=== PATIENT | male | born 1970 | race Caucasian/White ===

== ENCOUNTER 2016-04-15 19:16 | Emergency (ER) | payer BC ==
[2016-04-15] MEDS ORDERED: IPRATROPIUM/ALBUTEROL 0.5-2.5 MG/3 ML AMPUL NEB ONE (19:37)
--- NOTE | 2016-04-15 19:37 | ER Document Report ---
ED Medical Screen (RME) - General Stated Complaint: DIFFICLUTY BREATHING Notes: 45 yo male difficulty breathing x 3 days. + hx/ asthma. taking meds without relief. last neb @ 1600 today. no fever. + cough, nonproductive. Takes prednisone every day. TRAVEL OUTSIDE OF THE [place] IN LAST 30 DAYS: No - Related Data Allergies/Adverse Reactions: amoxicillin trihydrate [From Augmentin] Allergy (Verified 01/29/16 20:06) Potassium Clavulanate * [From Augmentin] Allergy (Verified 01/29/16 20:06) Past Medical History - Past Medical History Cardiac Medical History: Denies: Hx Coronary Artery Disease, Hx Heart Attack, Hx Hypertension Pulmonary Medical History: Denies: Hx Asthma, Hx Bronchitis, Hx COPD, Hx Pneumonia Neurological Medical History: Denies: Hx Cerebrovascular Accident, Hx Seizures Musculoskeltal Medical History: Denies Hx Arthritis Psychiatric Medical History: Reports: Hx Depression Past Surgical History: Reports: Hx Abdominal Surgery - lap band, Hx Myringotomy - Immunizations Immunizations up to date: Yes Hx Diphtheria, Pertussis, Tetanus Vaccination: Yes
[2016-04-15] MEDS ORDERED: METHYLPREDNISOLONE INJ 125 MG/2 ML SDV IM ONE (20:56)
[2016-04-15] MEDS ORDERED: ALBUTEROL SULFATE 0.083% NEB 2.5 MG/3 ML AMPUL NEB ONE (20:56)
--- NOTE | 2016-04-15 20:57 | ER Document Report ---
ED Respiratory Problem - General Chief Complaint: Asthma Exacerbation Stated Complaint: DIFFICLUTY BREATHING Mode of Arrival: Ambulatory Information source: Patient Notes: Patient is a 45-year-old male who presents to the ER today for shortness of breath with wheezing 2 days. Patient admits to cough as well but states that it is not productive and denies fever or chills, chest pain. TRAVEL OUTSIDE OF THE [place] IN LAST 30 DAYS: No - Related Data Allergies/Adverse Reactions: amoxicillin trihydrate [From Augmentin] Allergy (Verified 01/29/16 20:06) Potassium Clavulanate * [From Augmentin] Allergy (Verified 01/29/16 20:06) Past Medical History - General Information source: Patient - Social History Smoking Status: Unknown if Ever Smoked Family History: Reviewed & Not Pertinent Patient has suicidal ideation: No Patient has homicidal ideation: No - Past Medical History Cardiac Medical History: Denies: Hx Coronary Artery Disease, Hx Heart Attack, Hx Hypertension Pulmonary Medical History: Denies: Hx Asthma, Hx Bronchitis, Hx COPD, Hx Pneumonia Neurological Medical History: Denies: Hx Cerebrovascular Accident, Hx Seizures Renal/ Medical History: Denies: Hx Peritoneal Dialysis Musculoskeltal Medical History: Denies Hx Arthritis Psychiatric Medical History: Reports: Hx Depression Past Surgical History: Reports: Hx Abdominal Surgery - lap band, Hx Myringotomy - Immunizations Immunizations up to date: Yes Hx Diphtheria, Pertussis, Tetanus Vaccination: Yes Review of Systems - Review of Systems Constitutional: No symptoms reported EENT: No symptoms reported Cardiovascular: No symptoms reported Respiratory: See HPI Gastrointestinal: No symptoms reported Genitourinary: No symptoms reported Male Genitourinary: No symptoms reported Musculoskeletal: No symptoms reported Skin: No symptoms reported Hematologic/Lymphatic: No symptoms reported Neurological/Psychological: No symptoms reported Physical Exam - Vital signs Vitals: Temp Pulse Resp BP Pulse Ox 97.5 F 84 22 H 153/83 H 95 04/15/16 20:49 04/15/16 20:49 04/15/16 20:49 04/15/16 20:49 04/15/16 20:49 - Notes Notes: PHYSICAL EXAMINATION: GENERAL: Well-appearing and in no acute distress. HEAD: Atraumatic, normocephalic. EYES: Pupils equal round and reactive to light, extraocular movements intact, sclera anicteric, conjunctiva are normal. ENT: ear canals without erythema or foreign body, TMs pearly vivas with good bony landmarks, nares patent, oropharynx clear without exudates. Moist mucous membranes. Airway patent NECK: Normal range of motion, supple without lymphadenopathy LUNGS: Nonlabored breathing, slight cough, Mild expiratory wheezes in lower lung jacobs bilaterally, no rales or rhonchi. HEART: Regular rate and rhythm without murmurs ABDOMEN: Soft, no tenderness. No guarding, no rebound BACK: no vertebral tenderness, normal ROM GI/: no CVA tenderness EXTREMITIES: Normal range of motion, no pitting edema. No cyanosis. NEUROLOGICAL: Cranial nerves grossly intact. Normal sensory/motor exams. PSYCH: Normal mood, normal affect. SKIN: Warm, Dry, normal turgor, no rashes or lesions noted Course - Re-evaluation Re-evalutation: 04/15/16 21:33 Patient feels better after breathing treatment, he requests Solu-Medrol, stating that that usually helps his asthma exacerbations. He did receive that here in the emergency department as well as 2 more albuterol breathing treatments. I will send him home without albuterol inhaler as he states he is almost out. He takes prednisone daily. - Vital Signs Vital signs: Temp Pulse Resp BP Pulse Ox 97.5 F 84 22 H 153/83 H 95 04/15/16 20:49 04/15/16 20:49 04/15/16 20:49 04/15/16 20:49 04/15/16 20:49 Discharge - Discharge Clinical Impression: Asthma exacerbation Condition: Stable Disposition: HOME, SELF-CARE Instructions: Asthma ([facility]), Inhaled Bronchodilators ([facility]) Additional Instructions: Return immediately for any new or worsening symptoms. Follow up with primary care provider, call tomorrow to make followup appointment. Forms: Return to Work
[2016-04-15] MEDS ORDERED: ALBUTEROL SULFATE HFA (90 MCG/PUFF) 8 GM MDI (1 MDI/ER DISP) IH PRN (21:34)
[2016-04-16 06:49] VITALS: BP 112/94
== END 2016-04-15 22:55 | disposition home or self-care (01) ==
LOC: ER 19:16
DX: J45.901 Unspecified asthma with (acute) exacerbation (principal); R06.02 Shortness of breath; R05 Cough; Z88.0 Allergy status to penicillin
CPT/HCPCS: 94640 ×2; 99284; 96372; 71020; J2930; J3490; J7620

== ENCOUNTER → 2016-04-27 | Outpatient (CLI) | payer BC ==
[2016-04-29 11:40] LABS: E001-IGE CAT DANDER 0.94 kU/L (Class II); G002-IGE BERMUDA GRASS 0.39 kU/L (Class I); G006-IGE TIMOTHY GRASS 0.25 kU/L (Class 0/I); G010-IGE JOHNSON GRASS 0.21 kU/L (Class 0/I); G017-IGE BAHIA GRASS 0.47 kU/L (Class I); I100-IGE COCKROACHAMERICAN <0.10 kU/L (Class 0); M001-IGE PENICILLIUM CHRYSOGEN 0.41 kU/L (Class I); M002-IGE CLADOSPORIUM HERBARUM 0.29 kU/L (Class 0/I); M003-IGE ASPERGILLUS FUMIGATUS 0.13 kU/L (Class 0/I); M004-IGE MUCOR RACEMOSUS <0.10 kU/L (Class 0); M008-IGE SETOMELANOMMA ROSTRAT <0.10 kU/L (Class 0); M009-IGE FUSARIUM PROLIFERATUM <0.10 kU/L (Class 0); M010-IGE STEMPHYLIUM HERBARUM 0.15 kU/L (Class 0/I); M012-IGE AUREOBASIDI PULLULANS 0.26 kU/L (Class 0/I); M013-IGE PHOMA BETAE 0.28 kU/L (Class 0/I); T001-IGE MAPLE/BOX ELDER 0.58 kU/L (Class II); T007-IGE OAK WHITE 0.42 kU/L (Class I); T008-IGE ELM AMERICAN (WHITE 0.99 kU/L (Class II); T011-IGE MAPLE LEAF SYCAMORE 0.95 kU/L (Class II); T041-IGE HICKORY WHITE 0.27 kU/L (Class 0/I); T211-IGE SWEET GUM 0.73 kU/L (Class II); W001-IGE RAGWEED SHORT/COMMO 1.38 kU/L (Class II); W006-IGE MUGWORT 1.13 kU/L (Class II); W009-IGE PLANTAIN ENGLISH 1.82 kU/L (Class III); W014-IGE PIGWEED ROUGH 0.74 kU/L (Class II); W018-IGE SHEEP SORREL(DOCK) 0.32 kU/L (Class I); W020-IGE NETTLE 0.39 kU/L (Class I)
[2016-04-29 11:47] LABS: M014-IGE EPICOCCUM PURPURASCEN 0.19 kU/L (Class 0/I)
== END ==
LOC: RAD 08:40
PROVIDERS: ATTEND Nurse Practitioner Adult Health
DX: J45.51 Severe persistent asthma with (acute) exacerbation (principal); R06.00 Dyspnea, unspecified
CPT/HCPCS: 36415; 71250; 86003

== ENCOUNTER 2017-03-08 08:57 | Emergency (ER) | payer BC ==
[2017-03-08] MEDS ORDERED: PREDNISONE 20 MG TABLET PO ONE (09:35)
[2017-03-08] MEDS ORDERED: IPRATROPIUM/ALBUTEROL 0.5-2.5 MG/3 ML AMPUL NEB ONE (09:35)
--- NOTE | 2017-03-08 09:36 | ER Document Report ---
HPI - HPI Patient complains to provider of: cough Onset: Other - 1 month Onset/Duration: Persistent Pain Level: 0 Context: Patient presents with cough that is occasionally productive for the past month. Patient denies any fever. Patient does report a history of asthma. Associated Symptoms: Nonproductive cough. denies: Fever, Shortness of breath Exacerbated by: Denies Relieved by: Denies Similar symptoms previously: Yes Recently seen / treated by doctor: No - ROS ROS below otherwise negative: Yes Systems Reviewed and Negative: Yes All other systems reviewed and negative - CONSTITUTIONAL Constitutional: DENIES: Fever, Chills - EENT EENT: DENIES: Sore Throat - RESPIRATORY Respiratory: REPORTS: Coughing - GASTROINTESTINAL Gastrointestinal: DENIES: Nausea, Patient vomiting - DERM Skin Color: Normal Skin Problems: None Past Medical History - General Information source: Patient - Social History Smoking Status: Never Smoker Frequency of alcohol use: Occasional Drug Abuse: None Occupation: local delivery truck driver Family History: Reviewed & Not Pertinent - Past Medical History Cardiac Medical History: Denies: Hx Coronary Artery Disease, Hx Heart Attack, Hx Hypertension Pulmonary Medical History: Reports: Hx Asthma, Hx Sleep Apnea Denies: Hx Bronchitis, Hx COPD, Hx Pneumonia Neurological Medical History: Denies: Hx Cerebrovascular Accident, Hx Seizures Renal/ Medical History: Denies: Hx Peritoneal Dialysis GI Medical History: Reports: Hx Gastroesophageal Reflux Disease Musculoskeltal Medical History: Denies Hx Arthritis Psychiatric Medical History: Reports: Hx Depression Past Surgical History: Reports: Hx Abdominal Surgery - lap band, Hx Myringotomy - Immunizations Immunizations up to date: Yes Hx Diphtheria, Pertussis, Tetanus Vaccination: Yes Vertical Provider Document - CONSTITUTIONAL Agree With Documented VS: Yes Exam Limitations: No Limitations General Appearance: WD/WN, No Apparent Distress - INFECTION CONTROL TRAVEL OUTSIDE OF THE [place] IN LAST 30 DAYS: No - HEENT HEENT: Atraumatic, Normocephalic. negative: Pharyngeal Exudate, Pharyngeal Tenderness, Pharyngeal Erythema, Tympanic Membrane Red, Tympanic Membrane Bulging Notes: tube to Left TM - NECK Neck: Normal Inspection, Supple. negative: Lymphadenopathy-Left, Lymphadenopathy-Right - RESPIRATORY Respiratory: No Respiratory Distress, Chest Non-Tender, Wheezing O2 Sat by Pulse Oximetry: 96 - CARDIOVASCULAR Cardiovascular: Regular Rate, Regular Rhythm, No Murmur - BACK Back: Normal Inspection - MUSCULOSKELETAL/EXTREMETIES Musculoskeletal/Extremeties: MAEW - NEURO Level of Consciousness: Awake, Alert, Appropriate Motor/Sensory: No Motor Deficit - DERM Integumentary: Warm, Dry, No Rash Course - Re-evaluation Re-evalutation: 03/08/17 11:16 Pt continues with bilateral wheezing. Respirations unlabored. 03/08/17 12:31 Patient continues with scattered wheezing, patient reports improvement in his breathing. Discussed worsening symptoms that patient should return immediately for. Patient verbalized understanding and agrees with plan of care. - Vital Signs Vital signs: Temp Pulse Resp BP Pulse Ox 98.1 F 87 20 149/75 H 96 03/08/17 09:06 03/08/17 09:06 03/08/17 09:06 03/08/17 09:06 03/08/17 09:06 - Diagnostic Test Radiology reviewed: Reports reviewed Discharge - Discharge Clinical Impression: Elevated blood pressure reading Asthma exacerbation Qualifiers: Asthma severity: unspecified severity Asthma persistence: persistent Qualified Code(s): J45.901 - Unspecified asthma with (acute) exacerbation Condition: Stable Disposition: HOME, SELF-CARE Instructions: Asthma ([facility]), Inhaled Bronchodilators ([facility]), Steroid Medication Additional Instructions: Return immediately for any new or worsening symptoms Followup with your primary care provider, call tomorrow to make a followup appointment Follow-up with a ore washer as planned Prescriptions: Prednisone [Deltasone 20 mg Tablet] 3 tab PO DAILY 4 Days tablet Referrals: MILAD STREETER MD [ACTIVE STAFF] - Follow up as needed
[2017-03-08] MEDS ORDERED: ALBUTEROL SULFATE 0.083% NEB 2.5 MG/3 ML AMPUL NEB ONE ×2 (10:20→11:16)
--- NOTE | 2017-03-08 10:37 | RADIOLOGY REPORT (SQ) ---
EXAM DESCRIPTION: CHEST PA/LAT COMPLETED DATE/TIME: 03/08/2017 10:24 am REASON FOR STUDY: cough COMPARISON: 02/07/2017 EXAM PARAMETERS: NUMBER OF VIEWS: two views TECHNIQUE: Digital Frontal and Lateral radiographic views of the chest acquired. RADIATION DOSE: NA LIMITATIONS: none FINDINGS: LUNGS AND PLEURA: No opacities, masses or pneumothorax. No pleural effusion. MEDIASTINUM AND HILAR STRUCTURES: No masses or contour abnormalities. HEART AND VASCULAR STRUCTURES: Heart normal size. No evidence for failure. BONES: No acute findings. HARDWARE: None in the chest. OTHER: No other significant finding. IMPRESSION: NO SIGNIFICANT RADIOGRAPHIC FINDING IN THE CHEST. TECHNICAL DOCUMENTATION: JOB ID: [id number] [employer]- All Rights Reserved
[2017-03-08 12:41] VITALS: BP 142/76
== END 2017-03-08 12:41 | disposition home or self-care (01) ==
LOC: ER 08:57
DX: R03.0 Elevated blood-pressure reading, without diagnosis of hypertension (principal); J45.901 Unspecified asthma with (acute) exacerbation
CPT/HCPCS: 94640 ×2; 99283; 71020; J7512; J7620

== ENCOUNTER → 2017-03-19 | Outpatient (CLI) | payer BC | LOC: OD 12:47 | PROVIDERS: ATTEND Internal Medicine Pulmonary Disease | DX: J45.51 Severe persistent asthma with (acute) exacerbation (principal) | CPT/HCPCS: 36415; 80198 ==

== ENCOUNTER → 2017-05-13 | Outpatient (CLI) | payer BC | LOC: OD 09:40 | PROVIDERS: ATTEND Internal Medicine Pulmonary Disease | DX: J45.909 Unspecified asthma, uncomplicated (principal) | CPT/HCPCS: 36415; 80198 ==

== ENCOUNTER → 2017-05-25 | Outpatient (CLI) | payer BC ==
--- NOTE | 2017-05-25 13:17 | RADIOLOGY REPORT (SQ) ---
EXAM DESCRIPTION: CHEST PA/LATERAL COMPLETED DATE/TIME: 05/25/2017 12:11 pm REASON FOR STUDY: UNSPECIFIED ASTHMA WITH (ACUTE) EXACERBATION COMPARISON: CT chest 04/27/2016 Chest films 08/16/2015, 03/08/2017 EXAM PARAMETERS: NUMBER OF VIEWS: two views TECHNIQUE: Digital Frontal and Lateral radiographic views of the chest acquired. RADIATION DOSE: NA LIMITATIONS: none FINDINGS: LUNGS AND PLEURA: No opacities, masses or pneumothorax. No pleural effusion. MEDIASTINUM AND HILAR STRUCTURES: No masses or contour abnormalities. HEART AND VASCULAR STRUCTURES: Heart normal size. No evidence for failure. BONES: No acute findings. HARDWARE: Lap band prosthesis at the GE junction. OTHER: No other significant finding. IMPRESSION: NO SIGNIFICANT RADIOGRAPHIC FINDING IN THE CHEST. TECHNICAL DOCUMENTATION: JOB ID: [id number] [employer]- All Rights Reserved
== END ==
LOC: OD 11:15
PROVIDERS: ATTEND Physician Assistant
DX: J45.901 Unspecified asthma with (acute) exacerbation (principal); R05 Cough
CPT/HCPCS: 36415; 71046; 82947

== ENCOUNTER → 2017-05-29 | Outpatient (CLI) | payer BC ==
--- NOTE | 2017-05-29 16:42 | RADIOLOGY REPORT (SQ) ---
EXAM DESCRIPTION: CT CHEST WITHOUT COMPLETED DATE/TIME: 05/29/2017 8:51 am REASON FOR STUDY: DYSPNEA R06.00 DYSPNEA, UNSPECIFIED COMPARISON: CT chest 04/27/2016 TECHNIQUE: CT scan performed of the chest without intravenous contrast. Images reviewed with lung, soft tissue and bone windows. Reconstructed coronal and sagittal MPR images reviewed. All images st ored on PACS. All CT scanners at this facility use dose modulation, iterative reconstruction, and/or weight based d osing when appropriate to reduce radiation dose to as low as reasonably achievable (ALARA). [facility]: Dose Right [facility]: CareDose [facility]: Dose Right [facility]: Teradose 4D [facility]: [employer] RADIATION DOSE: CT Rad equipment meets quality standard of care and radiation dose reduction techniq ues were employed. CTDIvol: 21.1 mGy. DLP: 945 mGy-cm. mGy. LIMITATIONS: No technical limitations. FINDINGS: LUNGS AND PLEURA: No masses, infiltrates, pneumothorax. No pleural effusions, calcificati ons. HILAR AND MEDIASTINAL STRUCTURES: No identified masses or abnormal nodes. No obvious aneurysm. HEART AND VASCULAR STRUCTURES: No aneurysm. No pericardial effusion. UPPER ABDOMEN: Lap band prosthesis at the GE junction THYROID AND OTHER SOFT TISSUES: No masses. No adenopathy. BONES: No significant finding. HARDWARE: None in the chest. OTHER: No other significant findings. IMPRESSION: NO SIGNIFICANT FINDING ON NON-CONTRASTED CHEST CT. TECHNICAL DOCUMENTATION: JOB ID: [id number] Quality ID # [id number]: Final reports with documentation of one or more dose reduction techniques (e.g., Au tomated exposure control, adjustment of the mA and/or kV according to patient size, use of iterative reconstruction technique) 2010 [employer]- All Rights Reserved Reading location - IP/workstation name: [email or web address]
== END ==
LOC: RAD 08:31
PROVIDERS: ATTEND Physician Assistant
DX: R06.00 Dyspnea, unspecified (principal)
CPT/HCPCS: 71250

== ENCOUNTER 2018-01-12 00:02 | Emergency (ER) | payer BC ==
[2018-01-12 00:10] VITALS: BP 140/82
--- NOTE | 2018-01-12 00:39 | RADIOLOGY REPORT (SQ) ---
EXAM DESCRIPTION: XR FOOT 3 OR MORE VIEWS COMPLETED DATE/TME: 01/12/2018 00:00 CLINICAL HISTORY: 47 years, Male, Twisted foot at home. Painful to walk on. COMPARISON: None. NUMBER OF VIEWS: Three TECHNIQUE: Three views of the left foot LIMITATIONS: None. FINDINGS: There is no acute fracture or dislocation. The joint spaces are preserved. There is no radiopaque foreign body. IMPRESSION: No acute fracture or dislocation 2010 [employer]- All Rights Reserved
--- NOTE | 2018-01-12 01:02 | ER Document Report ---
ED General - General Chief Complaint: L foot injury Stated Complaint: FOOT INJURY Time Seen by Provider: 01/12/18 00:50 Notes: Patient is a 47-year-old male complains of pain in his left foot. Patient said he was walking to the bathroom and his foot caught on the linoleum and then twisted. Complains of pain mainly on the medial aspect and dorsum of the medial aspect of the foot. Denies any pain into the ankle or lower leg. No numbness into the toes. No other complaints at this time. TRAVEL OUTSIDE OF THE [place] IN LAST 30 DAYS: No - Related Data Allergies/Adverse Reactions: amoxicillin trihydrate [From Augmentin] Allergy (Verified 03/08/17 08:57) Potassium Clavulanate * [From Augmentin] Allergy (Verified 03/08/17 08:57) Past Medical History - Social History Smoking Status: Unknown if Ever Smoked Frequency of alcohol use: None Drug Abuse: None Family History: Reviewed & Not Pertinent Patient has suicidal ideation: No Patient has homicidal ideation: No - Past Medical History Cardiac Medical History: Denies: Hx Coronary Artery Disease, Hx Heart Attack, Hx Hypertension Pulmonary Medical History: Reports: Hx Asthma, Hx Sleep Apnea Denies: Hx Bronchitis, Hx COPD, Hx Pneumonia Neurological Medical History: Denies: Hx Cerebrovascular Accident, Hx Seizures Renal/ Medical History: Denies: Hx Peritoneal Dialysis GI Medical History: Reports: Hx Gastroesophageal Reflux Disease Musculoskeletal Medical History: Denies Hx Arthritis Psychiatric Medical History: Reports: Hx Depression Past Surgical History: Reports: Hx Abdominal Surgery - lap band, Hx Myringotomy - Immunizations Immunizations up to date: Yes Hx Diphtheria, Pertussis, Tetanus Vaccination: Yes Review of Systems - Review of Systems Notes: My Normal Review Basic REVIEW OF SYSTEMS: CONSTITUTIONAL : Denies fever, chills, or sweats. Denies recent illness. MUSCULOSKELETAL: Left foot pain NEUROLOGICAL: Denies sensory or motor loss. ALL OTHER SYSTEMS REVIEWED AND NEGATIVE. Physical Exam - Vital signs Vitals: Temp Pulse Resp BP Pulse Ox 97.7 F 90 16 140/82 H 95 01/12/18 00:05 01/12/18 00:05 01/12/18 00:05 01/12/18 00:05 01/12/18 00:05 - Notes Notes: General Appearance: Well nourished, alert, cooperative, no acute distress, no obvious discomfort. Vitals: reviewed, See vital signs table. Extremities: good pulses in all extremities, swelling to the medial aspect and dorsum of the left foot. Pain to palpation over the first and second metatarsals with slight swelling. Pain to palpation over the aspect of the plantar fascia. No pain to the ankle. No pain to the leg itself. Patient is able to flex and extend toes without difficulty. Good capillary refill in toes. Skin: warm, dry, appropriate color, no rash Neuro: speech clear, oriented x 3, normal affect, responds appropriately to questions. Course - Re-evaluation Re-evalutation: 01/12/18 05:42 X-rays are negative for fracture. Appears patient probably has a strain. I informed him he could have possibly torn ligaments or tendons in his foot and therefore he should stay off of it for at least 3 days. He does have a walking boot at home. Informed if he still having pain for 3 days and he should wear his boot and then follow-up with orthopedist. Encourage him return to ER immediately if he has worsening swelling, worsening pain, or feels unwell. Patient agrees with plan and will be discharged home. Dictation of this chart was performed using voice recognition software; therefore, there may be some unintended grammatical errors. - Vital Signs Vital signs: Temp Pulse Resp BP Pulse Ox 97.7 F 90 16 140/82 H 95 01/12/18 00:05 01/12/18 00:05 01/12/18 00:05 01/12/18 00:05 01/12/18 00:05 Discharge - Discharge Clinical Impression: Strain of foot, left Qualifiers: Encounter type: initial encounter Qualified Code(s): S96.912A - Strain of unspecified muscle and tendon at ankle and foot level, left foot, initial encounter Condition: Good Disposition: HOME, SELF-CARE Additional Instructions: Please do not bear weight on your foot for at least 3 days. If you still have pain with weight bearing after 3 days than you should wear your boot and follow up with the orthopedist, Dr. Keyes. You can also follow up with a network engineering advisor instead of the orthopedist if you prefer. Keep the foot elevated at night and apply ice packs at 30 minutes at a time. return to the ER if you have a large increase in swelling, intractable pain, or have any further concerns. Forms: Return to Work Referrals: SALOMON KEYES MD [ACTIVE STAFF] - Follow up in 3-5 days
== END 2018-01-12 01:31 | disposition home or self-care (01) ==
LOC: ER 00:02
DX: S96.912A Strain of unspecified muscle and tendon at ankle and foot level, left foot, initial encounter (principal); X50.0XXA Overexertion from strenuous movement or load, initial encounter; Y92.009 Unspecified place in unspecified non-institutional (private) residence as the place of occurrence of the external cause; Z88.0 Allergy status to penicillin
CPT/HCPCS: 99283

== ENCOUNTER 2018-03-07 09:06 | Emergency (ER) | payer BC ==
[2018-03-07] MEDS ORDERED: PREDNISONE 20 MG TABLET PO ONE (09:43)
[2018-03-07] MEDS ORDERED: IPRATROPIUM/ALBUTEROL 0.5-2.5 MG/3 ML AMPUL NEB ONE ×3 (09:43→11:45)
--- NOTE | 2018-03-07 09:45 | ER Document Report ---
ED Medical Screen (RME) - General Chief Complaint: Breathing Difficulty Stated Complaint: DIFFICULTY BREATHING Time Seen by Provider: 03/07/18 09:38 Mode of Arrival: Ambulatory Information source: Patient Notes: 47-year-old man with a history of asthma presents to the emergency room with a one-week history of cough, congestion, shortness of breath. TRAVEL OUTSIDE OF THE [place] IN LAST 30 DAYS: No - Related Data Allergies/Adverse Reactions: amoxicillin trihydrate [From Augmentin] Allergy (Verified 03/07/18 09:08) Potassium Clavulanate * [From Augmentin] Allergy (Verified 03/07/18 09:08) Past Medical History - Past Medical History Cardiac Medical History: Denies: Hx Coronary Artery Disease, Hx Heart Attack, Hx Hypertension Pulmonary Medical History: Reports: Hx Asthma, Hx Sleep Apnea Denies: Hx Bronchitis, Hx COPD, Hx Pneumonia Neurological Medical History: Denies: Hx Cerebrovascular Accident, Hx Seizures Renal/ Medical History: Denies: Hx Peritoneal Dialysis GI Medical History: Reports: Hx Gastroesophageal Reflux Disease Musculoskeltal Medical History: Denies Hx Arthritis Psychiatric Medical History: Reports: Hx Depression Past Surgical History: Reports: Hx Abdominal Surgery - lap band, Hx Myringotomy - Immunizations Immunizations up to date: Yes Hx Diphtheria, Pertussis, Tetanus Vaccination: Yes Physical Exam - Vital signs Vitals: Temp Pulse Resp BP Pulse Ox 98.4 F 96 18 141/90 H 95 03/07/18 09:13 03/07/18 09:13 03/07/18 09:13 03/07/18 09:13 03/07/18 09:13 Course - Vital Signs Vital signs: Temp Pulse Resp BP Pulse Ox 98.4 F 96 18 141/90 H 95 03/07/18 09:13 03/07/18 09:13 03/07/18 09:13 03/07/18 09:13 03/07/18 09:13 Doctor's Discharge - Discharge Referrals: CARLOTA OMALLEY PA [Primary Care Provider] - Follow up as needed
--- NOTE | 2018-03-07 10:53 | RADIOLOGY REPORT (SQ) ---
EXAM DESCRIPTION: CHEST 2 VIEWS COMPLETED DATE/TIME: 03/07/2018 10:41 am REASON FOR STUDY: sob, wheezing COMPARISON: Two-view chest 03/08/2017, 02/07/2017 CT chest 04/27/2016 EXAM PARAMETERS: NUMBER OF VIEWS: two views TECHNIQUE: Digital Frontal and Lateral radiographic views of the chest acquired. RADIATION DOSE: NA LIMITATIONS: none FINDINGS: LUNGS AND PLEURA: No opacities, masses or pneumothorax. No pleural effusion. MEDIASTINUM AND HILAR STRUCTURES: No masses or contour abnormalities. HEART AND VASCULAR STRUCTURES: Heart normal size. No evidence for failure. BONES: No acute findings. HARDWARE: None in the chest. OTHER: No other significant finding. IMPRESSION: NO ACUTE RADIOGRAPHIC FINDING IN THE CHEST. TECHNICAL DOCUMENTATION: JOB ID: [id number] [employer]- All Rights Reserved Reading location - IP/workstation name: [email or web address]
--- NOTE | 2018-03-07 10:53 | ER Document Report ---
ED General - General Chief Complaint: Breathing Difficulty Stated Complaint: DIFFICULTY BREATHING Time Seen by Provider: 03/07/18 09:38 Mode of Arrival: Ambulatory Notes: 47-year-old female with a history of asthma presents emergency department with a one-week history of cough, congestion, wheezing. Patient states that he has been using duo nebs at home without much relief of symptoms. He denies any exacerbating factors. He is not currently on any steroids. Patient denies any fever, chills, rhinorrhea, sore throat, chest pain, shortness of breath. TRAVEL OUTSIDE OF THE [place] IN LAST 30 DAYS: No - HPI Onset: Last week Onset/Duration: Gradual Quality of pain: No pain Severity: Mild Associated symptoms: Nonproductive cough Exacerbated by: Denies Relieved by: Denies Similar symptoms previously: Yes Recently seen / treated by doctor: No - Related Data Allergies/Adverse Reactions: amoxicillin trihydrate [From Augmentin] Allergy (Verified 03/07/18 09:08) Potassium Clavulanate * [From Augmentin] Allergy (Verified 03/07/18 09:08) Past Medical History - General Information source: Patient - Social History Smoking Status: Never Smoker Chew tobacco use (# tins/day): No Frequency of alcohol use: Occasional Drug Abuse: None Family History: Reviewed & Not Pertinent Patient has suicidal ideation: No Patient has homicidal ideation: No - Past Medical History Cardiac Medical History: Denies: Hx Coronary Artery Disease, Hx Heart Attack, Hx Hypertension Pulmonary Medical History: Reports: Hx Asthma, Hx Sleep Apnea Denies: Hx Bronchitis, Hx COPD, Hx Pneumonia Neurological Medical History: Denies: Hx Cerebrovascular Accident, Hx Seizures Renal/ Medical History: Denies: Hx Peritoneal Dialysis GI Medical History: Reports: Hx Gastroesophageal Reflux Disease Musculoskeletal Medical History: Denies Hx Arthritis Psychiatric Medical History: Reports: Hx Depression Past Surgical History: Reports: Hx Abdominal Surgery - lap band, Hx Myringotomy - Immunizations Immunizations up to date: Yes Hx Diphtheria, Pertussis, Tetanus Vaccination: Yes Review of Systems - Review of Systems Constitutional: No symptoms reported EENT: No symptoms reported Cardiovascular: No symptoms reported Respiratory: Cough, Wheezing Gastrointestinal: No symptoms reported Genitourinary: No symptoms reported Male Genitourinary: No symptoms reported Musculoskeletal: No symptoms reported Skin: No symptoms reported Hematologic/Lymphatic: No symptoms reported Neurological/Psychological: No symptoms reported -: Yes All other systems reviewed and negative Physical Exam - Vital signs Vitals: Temp Pulse Resp BP Pulse Ox 98.4 F 96 18 141/90 H 95 03/07/18 09:13 03/07/18 09:13 03/07/18 09:13 03/07/18 09:13 03/07/18 09:13 - Notes Notes: PHYSICAL EXAMINATION: GENERAL: Well-appearing, well-nourished and in no acute distress. HEAD: Atraumatic, normocephalic. EYES: Pupils equal round and reactive to light, extraocular movements intact, sclera anicteric, conjunctiva are normal. ENT: Nares patent, oropharynx clear without exudates. Moist mucous membranes. NECK: Normal range of motion, supple without lymphadenopathy LUNGS: Wheezing noted in the right and left lung bases. HEART: Regular rate and rhythm without murmurs ABDOMEN: Morbidly obese. Soft, nontender, nondistended abdomen. No guarding, no rebound. No masses appreciated. Musculoskeletal: Normal range of motion, no pitting or edema. No cyanosis. NEUROLOGICAL: Cranial nerves grossly intact. Normal speech, normal gait. Normal sensory, motor exams PSYCH: Normal mood, normal affect. SKIN: Warm, Dry, normal turgor, no rashes or lesions noted. Course - Re-evaluation Re-evalutation: 03/07/18 12:31 Chest x-ray done and does not show an acute process. Patient received 3 DuoNeb treatments as well as steroids while in the emergency department. On reevaluation, patient is moving air better and the wheezing has resolved. The patient feels comfortable with discharge home. I will discharge him home with a prescription for prednisone and Tessalon Perles. Patient states that he has a nebulizer machine at home that he will continue to use. I told the patient to follow-up with his primary care physician this week and to return to the emergency department for any worsening symptoms. Patient is agreeable to plan of care. - Vital Signs Vital signs: Temp Pulse Resp BP Pulse Ox 98.4 F 96 16 151/88 H 94 03/07/18 09:13 03/07/18 09:13 03/07/18 10:01 03/07/18 10:01 03/07/18 10:01 Discharge - Discharge Clinical Impression: Bronchitis Condition: Good Disposition: HOME, SELF-CARE Instructions: Bronchitis With Bronchospasm (Wheezing) (OM) Prescriptions: Benzonatate [Tessalon Perle 100 mg Capsule] 100 mg PO Q8HP PRN #15 cap PRN Reason: Prednisone [Deltasone 20 mg Tablet] 3 tab PO DAILY 5 Days #15 tablet Referrals: CARLOTA OMALLEY PA [Primary Care Provider] - Follow up as needed
[2018-03-07 12:45] VITALS: BP 140/85
== END 2018-03-07 12:46 | disposition home or self-care (01) ==
LOC: ER 09:06
DX: J45.909 Unspecified asthma, uncomplicated (principal); R05 Cough; R09.81 Nasal congestion
CPT/HCPCS: 94640 ×2; 99285; 71046; J7512; J7620

== ENCOUNTER → 2018-04-18 | Outpatient (CLI) | payer BC ==
--- NOTE | 2018-04-18 15:55 | RADIOLOGY REPORT (SQ) ---
EXAM DESCRIPTION: MRI RT LOWER EXTREMITY WITHOUT COMPLETED DATE/TIME: 04/18/2018 3:19 pm REASON FOR STUDY: UNSPEC DISORDER OF SYNOVIUM AND TENDON, UNSPEC ANKLE AND FOOT (M67.979) M67.979 U NSP DISORDER OF SYNOVIUM AND TENDON, UNSP ANKLE AND COMPARISON: None. TECHNIQUE: Right ankle images acquired and stored on PACS. Multiplanar images include fat sensitive sequences as T1, fluid sensitive sequences as FST2/STIR, cartilage sensitive sequences as FSPD, and g radient echo sequences. LIMITATIONS: None. FINDINGS: BONE MARROW: No alteration of signal to suggest marrow replacement or edema. No occult fra cture. No large osteophytes. EFFUSIONS: No subtalar or tibiotalar effusions. No loose bodies. OSSEOUS ARTICULATIONS: Normal tibiotalar, subtalar, talonavicular and calcaneocuboid joints. TALAR DOME AND TIBIAL PLAFOND: Normal cartilage. No osteochondral defect. ACHILLES TENDON: Focal thickening of approximately 3 cm segment about 3.5 cm proximal to the insertio n. Maximum AP diameter 10 mm. Loss of anterior concave appearance. Low signal on T 2. Mostly low signal on T1 with subtle peripheral intermediate signal. Mild inflammation in the tendon sheath. No bursal fluid. TIBIALIS ANTERIOR TENDON: Intact without edema at the 1st MT attachment. TIBIALIS POSTERIOR TENDON: Normal morphology and no edema at the navicular attachment. No tendon medina th fluid. FLEXOR HALLUCIS LONGUS AND FLEXOR DIGITORUM TENDONS: Normal morphology and no tendon sheath fluid. No edema of the os trigonum. PERONEUS LONGUS AND BREVIS TENDON: Normal morphology and no tendon sheath fluid. No subluxation. ATFL, CFL, PTFL: Intact. No thickening or signal alteration. No fabiola-ligamentous fluid. DELTOID LIGAMENT: Visualized components intact. TARSAL TUNNEL: No masses. No muscle atrophy. SINUS TARSI: No fluid. No reactive marrow edema or erosions. PLANTAR FASCIA: No signal alteration or tear. ADJACENT SOFT TISSUES: No masses. OTHER: No other significant finding. IMPRESSION: Achilles tendinosis. No evidence of underlying mass. TECHNICAL DOCUMENTATION: JOB ID: [id number] [employer]- All Rights Reserved Reading location - IP/workstation name: [email or web address]
== END ==
LOC: RAD 12:58
PROVIDERS: ATTEND Family Medicine
DX: M76.61 Achilles tendinitis, right leg (principal)

== ENCOUNTER → 2018-09-05 | Outpatient (CLI) | payer BC | LOC: OD 09:50 | PROVIDERS: ATTEND Physician Assistant | DX: R00.2 Palpitations (principal) | CPT/HCPCS: 36415; 83735 ==

== ENCOUNTER → 2019-01-12 | Outpatient (CLI) | payer BC ==
[2019-01-12 09:25] LABS: ANION GAP 7 (5-19); BLOOD UREA NITROGEN 9 mg/dL (7-20); CALCIUM 9.3 mg/dL (8.4-10.2); CARBON DIOXIDE 32 mmol/L (22-30); CHLORIDE 99 mmol/L (98-107); GLUCOSE 107 mg/dL (75-110); POTASSIUM 4.3 mmol/L (3.6-5.0)
== END ==
LOC: OD 08:39
PROVIDERS: ATTEND Physician Assistant
DX: I10 Essential (primary) hypertension (principal); R73.09 Other abnormal glucose; E66.01 Morbid (severe) obesity due to excess calories; Z79.899 Other long term (current) drug therapy
CPT/HCPCS: 36415; 80048; 83036